=== PATIENT | male | born 1940 | race Caucasian/White ===

== ENCOUNTER 2016-06-24 08:58 | Emergency (ER) | payer MEDICARE, BC ==
[2016-06-24] MEDS ORDERED: Sodium Chloride 0.9% 1,000 ML IV SCH ×2 (09:30→11:00)
--- NOTE | 2016-06-24 09:58 | EDM.PDOC ---
ED HPI GENERAL MEDICAL PROBLEM - General Chief Complaint: General Stated Complaint: MEDICAL VIA [facility] Time Seen by Provider: 06/24/16 09:10 Source of Information: Reports: Patient, Family History Limitations: Reports: No limitations - History of Present Illness INITIAL COMMENTS - FREE TEXT/NARRATIVE: pt has been having radiation and chemo . He has had the radiation twice daily. Yesterday he had diarrhea and felt dehydrated. He was sitting on the edge of the bed this am and nearly passed out. He was vry lite headed and looked quite pale. Onset: sudden Duration: Hour(s): Location: Reports: other (pt was very lite headed. ) Associated Symptoms: Reports: diaphoresis, syncope, other (pt had markd diarrhea yesterday, ) Neck Pain Score (Numeric/FACES): 5 - Related Data Allergies Allergy/AdvReac Type Severity Reaction Status Date / Time No Known Allergies Allergy Verified 06/24/16 09:11 Home Meds: Home Meds Albuterol Sulfate [Proair Hfa] 2 puff INH Q4H PRN 11/27/14 [History] Albuterol/Ipratropium [DuoNeb 3.0-0.5 MG/3 ML] 1 inh INH QID PRN 11/27/14 [ History] Ascorbic Acid [Vitamin C] 500 mg PO DAILY 11/27/14 [History] Budesonide [Pulmicort] 1 unit NEB BID PRN 11/27/14 [History] Furosemide [Lasix] 40 mg PO .QAM 11/27/14 [History] Hydrochlorothiazide 25 mg PO DAILY 11/27/14 [History] Insulin Aspart [NovoLOG] 100 - 150 unit SQ ASDIRECTED 11/27/14 [History] Insulin Glargine,Hum.Rec.Anlog [Lantus Solostar] 40 units SUBCUT .2TIMES A DAY PRN 11/27/14 [History] Lisinopril [Prinivil] 10 mg PO DAILY 11/27/14 [History] Metoprolol Tartrate [Lopressor] 25 mg PO BID 11/27/14 [History] [place]-3 Fatty Acids/Fish Oil [Fish Oil 1,000 mg Softgel] 1,000 mg PO BID [History] Vitamin E (Dl,Tocopheryl Acet) [Vitamin E] 400 units PO BID 11/27/14 [History] metFORMIN [Glucophage] 1,000 mg PO .BID WITH MEALS 11/27/14 [History] Aspirin [Halfprin] 325 mg PO DAILY 06/25/15 [History] Nitroglycerin 1 spray BUCCAL ASDIRECTED PRN 06/25/15 [History] atorvaSTATin [Lipitor] 1 tab PO DAILY 06/25/15 [History] Furosemide [Lasix] 20 mg PO DAILY 03/26/16 [History] Past Medical History HEENT History: Reports: Impaired vision Other HEENT History: wears glasses Cardiovascular History: Reports: Aneurysm, Bypass, High cholesterol, [place], SOB on exertion, Stents Respiratory History: Reports: COPD, Pneumonia, recurrent, SOB, Other (see below) Other Respiratory History: Lung CA Feb Gastrointestinal History: Reports: Colon polyp, Hemorrhoids Genitourinary History: Reports: Diabetic nephropathy, Renal calculus Musculoskeletal History: Reports: Arthritis, Neck pain, chronic Neurological History: Reports: Neuropathy, diabetic, Neuropathy, peripheral Endocrine/Metabolic History: Reports: Diabetes, type II, Obesity/BMI 30+, Vitamin D deficiency Oncologic (Cancer) History: Reports: Basal cell carcinoma Dermatologic History: Reports: None - Infectious Disease History Infectious Disease History: Reports: Chicken pox, Measles, Mumps, Shingles - Past Surgical History HEENT Surgical History: Reports: Cataract surgery Cardiovascular Surgical History: Reports: Coronary artery bypass, Coronary artery stent, Vascular surgery Respiratory Surgical History: Reports: None GI Surgical History: Reports: Colonoscopy, Hernia, inguinal Male Surgical History: Reports: Renal Calculus Endocrine Surgical History: Reports: None Neurological Surgical History: Reports: None Musculoskeletal Surgical History: Reports: None Oncologic Surgical History: Reports: None Dermatological Surgical History: Reports: Skin biopsy Social & Family History - Family History Family Medical History: Noncontributory - Tobacco Use Smoking Status *Q: Former Smoker Years of Tobacco use: 40 Used Tobacco, but Quit: Yes Month Tobacco Last Used: 1997 Second Hand Smoke Exposure: No - Caffeine Use Caffeine Use: Reports: Coffee - Alcohol Use Days Per Week of Alcohol Use: 0 - Recreational Drug Use Recreational Drug Use: No ED ROS GENERAL - Review of Systems Review Of Systems: See Below Constitutional: Reports: no symptoms HEENT: Reports: No symptoms Respiratory: Reports: No Symptoms Cardiovascular: Reports: No symptoms Endocrine: Reports: no symptoms GI/Abdominal: Reports: No symptoms : Reports: no symptoms Musculoskeletal: Reports: no symptoms Skin: Reports: no symptoms Neurological: Reports: Dizziness, Syncope Psychiatric: Reports: No symptoms ED EXAM, GENERAL - Physical Exam Exam: See Below Free Text/Narrative:: Pt is a pale appearing pt who is alert and able to give a good history. Exam Limited By: No limitations General Appearance: alert, mild distress Ears: normal TMs Nose: normal inspection Throat/Mouth: Normal inspection Head: atraumatic Neck: normal inspection Respiratory/Chest: no respiratory distress Cardiovascular: regular rate, rhythm GI/Abdominal: soft, non tender (Male) Exam: Deferred Rectal (Males) Exam: Deferred Back Exam: normal inspection Extremities: normal inspection Neurological: alert, oriented, normal cognition Psychiatric: normal affect Course - Vital Signs Last Recorded V/S: Last Vital Signs Temp 35.6 C 06/24/16 11:32 Pulse 63 06/24/16 10:45 Resp 16 06/24/16 10:45 BP 111/58 L 06/24/16 10:45 Pulse Ox 97 06/24/16 10:45 Orthostatic Blood Pressure [ 92/57 Standing] Orthostatic Blood Pressure [ 130/57 Sitting] Orthostatic Blood Pressure [ 111/64 Supine] - Orders/Labs/Meds Orders: Active Orders 24 hr Category Date Time Status Cardiac Monitoring [RC] .As Directed Care 06/24/16 09:19 Active EKG Documentation Completion [RC] ASDIRECTED Care 06/24/16 11:10 Active Orthostatic Vital Signs [RC] ASDIRECTED Care 06/24/16 11:57 Active Sodium Chloride 0.9% [Normal Saline] 1,000 ml Med 06/24/16 09:30 Active IV ASDIRECTED Sodium Chloride 0.9% [Normal Saline] 1,000 ml Med 06/24/16 11:00 Active IV ASDIRECTED EKG 12 Lead [EK] Routine Ther 06/24/16 11:10 Ordered Medication Orders Sodium Chloride (Normal Saline) 1,000 mls @ 999 mls/hr IV ASDIRECTED RACHAEL Last Admin: 06/24/16 09:44 Dose: 999 mls/hr Sodium Chloride (Normal Saline) 1,000 mls @ 500 mls/hr IV ASDIRECTED RACHAEL Last Admin: 06/24/16 11:13 Dose: 500 mls/hr Labs: Laboratory Tests 06/24/16 06/24/1617 Range/Units 09:38 09:38 11:09 WBC 7.9 (4.5-11.0) K/uL RBC 4.09 L (4.30-5.90) M/uL Hgb 12.0 D (12.0-15.0) g/dL Hct 37.8 L (40.0-54.0) % MCV 92 (80-98) fL MCH 29 (27-31) pg MCHC 32 (32-36) % Plt Count 218 (150-400) K/uL Neut % (Auto) 94 H (36-66) % Lymph % (Auto) 5 L (24-44) % [place] % (Auto) 0 L (2-6) % Eos % (Auto) 1 L (2-4) % Baso % (Auto) 0 (0-1) % Sodium 142 (140-148) mmol/L Potassium 4.5 (3.6-5.2) mmol/L Chloride 103 (100-108) mmol/L Carbon Dioxide 31 (21-32) mmol/L Anion Gap 7.6 (5.0-14.0) mmol/L BUN 71 H (7-18) mg/dL Creatinine 1.5 H (0.8-1.3) mg/dL Est Cr Clr Drug Dosing 43.86 mL/min Estimated GFR (MDRD) 46 L (>60) Glucose 123 H (74-106) mg/dL Calcium 8.8 (8.5-10.1) mg/dL Total Bilirubin 1.0 (0.2-1.0) mg/dL AST 12 L (15-37) U/L ALT 27 (12-78) U/L Alkaline Phosphatase 55 (46-116) U/L Total Protein 6.0 L (6.4-8.2) g/dL Albumin 2.7 L (3.4-5.0) g/dL Globulin 3.3 (2.3-3.5) g/dL Albumin/Globulin Ratio 0.8 L (1.2-2.2) Urine Color Yellow Urine Appearance Clear Urine pH 5.0 (4.5-8.0) Ur Specific [place] 1.020 (1.008-1.030) Urine Protein Negative (NEGATIVE) mg/dL Urine Glucose (UA) Normal (NEGATIVE) mg/dL Urine Ketones Negative (NEGATIVE) mg/dL Urine Occult Blood Negative (NEGATIVE) Urine Nitrite Negative (NEGAITVE) Urine Bilirubin Negative (NEGATIVE) Urine Urobilinogen Normal (NORMAL) mg/dL Ur Leukocyte Esterase Negative (NEGATIVE) Urine RBC Not seen (0-5) Urine WBC 0-5 (0-5) Ur Epithelial Cells Not seen Amorphous Sediment Not seen Urine Bacteria Not seen Urine Mucus Not seen Urine Other Meds: Medications Generic Name Dose Route Start Last Admin Trade Name Stephanie PRN Reason Stop Dose Admin Sodium Chloride 1,000 mls @ 999 mls/hr 06/24/16 09:30 06/24/16 09:44 Normal Saline IV 999 mls/hr ASDIRECTED RACHAEL Administration Sodium Chloride 1,000 mls @ 500 mls/hr 06/24/16 11:00 06/24/16 11:13 Normal Saline IV 500 mls/hr ASDIRECTED RACHAEL Administration - Re-Assessments/Exams Free Text/Narrative Re-Assessment/Exam: 06/24/16 11:58 pt arrived after having a near syncopal episode at home. He had severe diarrhea yesterday. He did have a bp as low as sytolic 70. 06/24/16 12:00 06/24/16 12:00 pt had electrolytes that showed dehydration. 06/24/16 13:22 Pt received 2 liters of fluid and does feel much better. His orthostatic how when he stands up his bp does drop some. Departure - Departure Time of Disposition: 13:25 Disposition: Home, Self-Care 01 Condition: fair Clinical Impression: Dehydration, Cancer of lung Forms: ED Department Discharge Care Plan Goals: decrease lasix for the next 5 days to 40mg daily, skep the 20mg. Encourage fluids. Resume radiation tomorrow. - My Orders Last 24 Hours: My Active Orders 06/24/16 09:19 Cardiac Monitoring [RC] .As Directed 06/24/16 09:30 Sodium Chloride 0.9% [Normal Saline] 1,000 ml IV ASDIRECTED 06/24/16 11:00 Sodium Chloride 0.9% [Normal Saline] 1,000 ml IV ASDIRECTED 06/24/16 11:10 EKG Documentation Completion [RC] ASDIRECTED EKG 12 Lead [EK] Routine 06/24/16 11:57 Orthostatic Vital Signs [RC] ASDIRECTED - Assessment/Plan Last 24 Hours: My Active Orders 06/24/16 09:19 Cardiac Monitoring [RC] .As Directed 06/24/16 09:30 Sodium Chloride 0.9% [Normal Saline] 1,000 ml IV ASDIRECTED 06/24/16 11:00 Sodium Chloride 0.9% [Normal Saline] 1,000 ml IV ASDIRECTED 06/24/16 11:10 EKG Documentation Completion [RC] ASDIRECTED EKG 12 Lead [EK] Routine 06/24/16 11:57 Orthostatic Vital Signs [RC] ASDIRECTED
[2016-06-24 11:23] VITALS: BP 111/58
== END 2016-06-24 13:48 | disposition home or self-care (01) ==
LOC: JP.ED 08:58
DX: E86.0 Dehydration (principal); C34.90 Malignant neoplasm of unspecified part of unspecified bronchus or lung; I25.2 Old myocardial infarction; E78.00 Pure hypercholesterolemia, unspecified; J44.9 Chronic obstructive pulmonary disease, unspecified; E11.21 Type 2 diabetes mellitus with diabetic nephropathy; Z79.4 Long term (current) use of insulin; Z79.82 Long term (current) use of aspirin; Z79.899 Other long term (current) drug therapy; E66.9 Obesity, unspecified; Z68.37 Body mass index [BMI] 37.0-37.9, adult; Z95.1 Presence of aortocoronary bypass graft; Z95.5 Presence of coronary angioplasty implant and graft; Z98.49 Cataract extraction status, unspecified eye; Z98.890 Other specified postprocedural states; Z87.891 Personal history of nicotine dependence
CPT/HCPCS: 36415; 80053; 81001; 85025; 93005; 96360; 99284; J7040; 93010

== ENCOUNTER 2016-12-15 18:17 | Emergency (ER) | payer MEDICARE, BC ==
[2016-12-15 22:22] VITALS: BP 115/68
--- NOTE | 2016-12-15 22:59 | EDM.PDOC ---
ED HPI GENERAL MEDICAL PROBLEM - General Chief Complaint: Diabetic Complaint Stated Complaint: DIZZY Time Seen by Provider: 12/15/16 18:56 Source of Information: Reports: Patient, Family History Limitations: Reports: Other (This patient keeps falling asleep during the exam. All history is given by his ) - History of Present Illness INITIAL COMMENTS - FREE TEXT/NARRATIVE: This patient was brought in because his blood sugar had dropped to 32. He was given something to eat and the sugar came up. This patient has an insulin pump This patient has a history of lung cancer. His last chemotherapy was back in August of this year. His said he said has been sleeping a lot for the past month. He'll wake up in the morning eat breakfast and immediately go back to bed where he'll sleep a couple of hours he seems to sleep about 2 hours then he' ll be awake for a few minutes and then back to bed. The insulins pump had been disconnected for a while. His blood sugar was about 140 when he reconnected the PUMP. Normally he would suspend the PTU MP but he did not suspend it today. Shortly afterwards the sugar dropped to 32. His thinks that he is so sleepy lately that that might have caused him to fail to use the pump correctly. - Related Data Allergies Allergy/AdvReac Type Severity Reaction Status Date / Time No Known Allergies Allergy Verified 12/15/16 18:41 Home Meds: Home Meds Albuterol Sulfate [Proair Hfa] 2 puff INH Q4H PRN 11/27/14 [History] Albuterol/Ipratropium [DuoNeb 3.0-0.5 MG/3 ML] 1 inh INH QID PRN 11/27/14 [ History] Budesonide [Pulmicort] 1 unit NEB BID PRN 11/27/14 [History] Insulin Aspart [NovoLOG] 100 - 150 unit SQ ASDIRECTED 11/27/14 [History] Insulin Glargine,Hum.Rec.Anlog [Lantus Solostar] 40 units SUBCUT .2TIMES A DAY PRN 11/27/14 [History] Metoprolol Tartrate [Lopressor] 12.5 mg PO BID 11/27/14 [History] Aspirin [Halfprin] 325 mg PO DAILY 06/25/15 [History] Nitroglycerin 1 spray BUCCAL ASDIRECTED PRN 06/25/15 [History] atorvaSTATin [Lipitor] 80 mg PO DAILY 06/25/15 [History] Magnesium Oxide [Magnesium] 500 mg PO BID 12/15/16 [History] Megestrol [Megace] 20 ml PO DAILY 12/15/16 [History] Torsemide [Demadex] 10 mg PO DAILY 12/15/16 [History] Past Medical History HEENT History: Reports: Impaired Vision Other HEENT History: wears glasses Cardiovascular History: Reports: Aneurysm, Bypass, High Cholesterol, [place], SOB on Exertion, Stents Respiratory History: Reports: COPD, Pneumonia, Recurrent, SOB, Other (See Below) Other Respiratory History: Lung CA Feb Gastrointestinal History: Reports: Colon Polyp, Hemorrhoids Genitourinary History: Reports: Diabetic Nephropathy, Renal Calculus Musculoskeletal History: Reports: Arthritis, Neck Pain, Chronic Neurological History: Reports: Neuropathy, Diabetic, Neuropathy, Peripheral Endocrine/Metabolic History: Reports: Diabetes, Type II, Obesity/BMI 30+, Vitamin D Deficiency Oncologic (Cancer) History: Reports: Basal Cell Carcinoma Dermatologic History: Reports: None - Infectious Disease History Infectious Disease History: Reports: Chicken Pox, Measles, Mumps, Shingles - Past Surgical History HEENT Surgical History: Reports: Cataract Surgery Cardiovascular Surgical History: Reports: Coronary Artery Bypass, Coronary Artery Stent, Vascular Surgery GI Surgical History: Reports: Colonoscopy, Hernia, Inguinal Dermatological Surgical History: Reports: Skin Biopsy Social & Family History - Family History Family Medical History: Noncontributory - Tobacco Use Smoking Status *Q: Former Smoker Years of Tobacco use: 40 Used Tobacco, but Quit: Yes Month Tobacco Last Used: 1997 Second Hand Smoke Exposure: No - Caffeine Use Caffeine Use: Reports: Coffee - Alcohol Use Days Per Week of Alcohol Use: 0 - Recreational Drug Use Recreational Drug Use: No ED ROS GENERAL - Review of Systems Review Of Systems: See Below Constitutional: Reports: Other (See history of present illness) HEENT: Reports: No Symptoms Respiratory: Reports: No Symptoms Cardiovascular: Reports: No Symptoms Endocrine: Reports: No Symptoms GI/Abdominal: Reports: No Symptoms : Reports: No Symptoms ED EXAM GENERAL NO PERIP PULSE - Physical Exam Exam: See Below Exam Limited By: Other (The patient falls asleep multiple times during the exam) General Appearance: WD/WN, No Apparent Distress Eye Exam: Bilateral Eye: EOMI, PERRL Ears: Normal External Exam, Normal TMs Nose: Normal Inspection Throat/Mouth: Normal Oropharynx Head: Atraumatic Neck: Normal Inspection Respiratory/Chest: Lungs Clear, Other (There is a port in the right infra clavicular area) Cardiovascular: Regular Rate, Rhythm GI/Abdominal: Soft, Non-Tender Back Exam: Normal Inspection Extremities: Normal Inspection Neurological: Oriented, CN II-XII Intact, No Motor/Sensory Deficits, Other (He awakens to voice but after a few moments will close his eyes and go back to sleep.) Psychiatric: Normal Affect Skin Exam: Warm, Dry Course - Vital Signs Last Recorded V/S: Last Vital Signs Temp 35.8 C 12/15/16 18:52 Pulse 76 12/15/16 22:21 Resp 16 12/15/16 22:21 BP 115/68 12/15/16 22:21 Pulse Ox 97 12/15/16 22:21 - Orders/Labs/Meds Orders: Active Orders 24 hr Category Date Time Status Chest 1V Frontal [CR] Urgent Exams 12/15/16 19:11 Taken Head wo Cont [CT] Stat Exams 12/15/16 19:12 Taken Labs: Laboratory Tests 12/15/16 12/15/16 12/15/16 Range/Units 19:22 19:22 19:22 WBC 6.1 (4.5-11.0) K/uL RBC 3.99 L (4.30-5.90) M/uL Hgb 11.2 L (12.0-15.0) g/dL Hct 35.2 L (40.0-54.0) % MCV 88 (80-98) fL MCH 28 (27-31) pg MCHC 32 (32-36) % Plt Count 278 (150-400) K/uL Neut % (Auto) 74 H (36-66) % Lymph % (Auto) 8 L (24-44) % [place] % (Auto) 15 H (2-6) % Eos % (Auto) 2 (2-4) % Baso % (Auto) 1 (0-1) % Sodium 139 L (140-148) mmol/L Potassium 3.6 (3.6-5.2) mmol/L Chloride 103 (100-108) mmol/L Carbon Dioxide 29 (21-32) mmol/L Anion Gap 10.6 (5.0-14.0) mmol/L BUN 19 H D (7-18) mg/dL Creatinine 1.0 (0.8-1.3) mg/dL Est Cr Clr Drug Dosing 66.92 mL/min Estimated GFR (MDRD) > 60 (>60) Glucose 63 L (74-106) mg/dL Lactic Acid 1.7 (0.4-2.0) mmol/L Calcium 8.4 L (8.5-10.1) mg/dL Total Bilirubin 0.5 (0.2-1.0) mg/dL AST 22 D (15-37) U/L ALT 21 (12-78) U/L Alkaline Phosphatase 158 H D (46-116) U/L Total Protein 6.4 (6.4-8.2) g/dL Albumin 2.4 L (3.4-5.0) g/dL Globulin 4.0 H (2.3-3.5) g/dL Albumin/Globulin Ratio 0.6 L (1.2-2.2) Urine Color Urine Appearance Urine pH (4.5-8.0) Ur Specific [place] (1.008-1.030) Urine Protein (NEGATIVE) mg/dL Urine Glucose (UA) (NEGATIVE) mg/dL Urine Ketones (NEGATIVE) mg/dL Urine Occult Blood (NEGATIVE) Urine Nitrite (NEGAITVE) Urine Bilirubin (NEGATIVE) Urine Urobilinogen (NORMAL) mg/dL Ur Leukocyte Esterase (NEGATIVE) Urine RBC (0-5) Urine WBC (0-5) Ur Epithelial Cells Amorphous Sediment Urine Bacteria Urine Mucus 12/15/16 Range/Units 20:08 WBC (4.5-11.0) K/uL RBC (4.30-5.90) M/uL Hgb (12.0-15.0) g/dL Hct (40.0-54.0) % MCV (80-98) fL MCH (27-31) pg MCHC (32-36) % Plt Count (150-400) K/uL Neut % (Auto) (36-66) % Lymph % (Auto) (24-44) % [place] % (Auto) (2-6) % Eos % (Auto) (2-4) % Baso % (Auto) (0-1) % Sodium (140-148) mmol/L Potassium (3.6-5.2) mmol/L Chloride (100-108) mmol/L Carbon Dioxide (21-32) mmol/L Anion Gap (5.0-14.0) mmol/L BUN (7-18) mg/dL Creatinine (0.8-1.3) mg/dL Est Cr Clr Drug Dosing mL/min Estimated GFR (MDRD) (>60) Glucose (74-106) mg/dL Lactic Acid (0.4-2.0) mmol/L Calcium (8.5-10.1) mg/dL Total Bilirubin (0.2-1.0) mg/dL AST (15-37) U/L ALT (12-78) U/L Alkaline Phosphatase (46-116) U/L Total Protein (6.4-8.2) g/dL Albumin (3.4-5.0) g/dL Globulin (2.3-3.5) g/dL Albumin/Globulin Ratio (1.2-2.2) Urine Color Yellow Urine Appearance Clear Urine pH 7.0 (4.5-8.0) Ur Specific [place] 1.010 (1.008-1.030) Urine Protein Negative (NEGATIVE) mg/dL Urine Glucose (UA) Normal (NEGATIVE) mg/dL Urine Ketones Negative (NEGATIVE) mg/dL Urine Occult Blood Negative (NEGATIVE) Urine Nitrite Negative (NEGAITVE) Urine Bilirubin Negative (NEGATIVE) Urine Urobilinogen Normal (NORMAL) mg/dL Ur Leukocyte Esterase Negative (NEGATIVE) Urine RBC Not seen (0-5) Urine WBC Not seen (0-5) Ur Epithelial Cells Rare Amorphous Sediment Not seen Urine Bacteria Rare Urine Mucus Not seen - Re-Assessments/Exams Free Text/Narrative Re-Assessment/Exam: 12/16/16 06:49 Labs were done on this patient. Initially a fingerstick blood sugar was approximately 108. A venipuncture was done which came back about 63 and at that point another fingerstick was done anything dropped into the 40s. The patient was fed a snack and a sandwich. Prior to discharge the blood sugar had risen to 260+ Labs were reviewed and no gross abnormalities were seen. A head CT was done and there were no acute intracranial abnormalities. Patient was reexamined prior to going home and this time he was very alert much more so than any time since arrival. Departure - Departure Time of Disposition: 22:57 Disposition: Home, Self-Care 01 Condition: Fair Clinical Impression: Hypoglycemia - Discharge Information Instructions: Hypoglycemia, [id number] Referrals: PCP,None [Primary Care Provider] - Forms: ED Department Discharge Additional Instructions: It appears that the low blood sugar was caused by restarting the instrument pump in the face of poor caloric intake. No gross lab abnormalities were found other than the low blood sugar. His CT scan was unremarkable. The chest x-ray showed no significant changes from one done last year. In the future he should just try to maintain a consistent caloric intake. If he is not taking in the calories then the instrument pop needs to be turned down or put on standby. Return to the ER at any time if needed - My Orders Last 24 Hours: My Active Orders 12/15/16 19:11 Chest 1V Frontal [CR] Urgent 12/15/16 19:12 Head wo Cont [CT] Stat - Assessment/Plan Last 24 Hours: My Active Orders 12/15/16 19:11 Chest 1V Frontal [CR] Urgent 12/15/16 19:12 Head wo Cont [CT] Stat
--- NOTE | 2016-12-16 08:50 | CR ---
Heart size within normal limits. Sternotomy. Prior thoracotomy the left. The left midlung zone nodule is decreased in size compared to prior chest x-ray 04/13/2016. Thoracotomy left midlung zone. No focal consolidation. Streaky density within the right lung base may reflect atelectasis. Developing infilt rate difficult to exclude.
== END 2016-12-15 23:30 | disposition home or self-care (01) ==
LOC: JP.ED 18:17
DX: E11.649 Type 2 diabetes mellitus with hypoglycemia without coma (principal); H54.7 Unspecified visual loss; E78.00 Pure hypercholesterolemia, unspecified; I25.2 Old myocardial infarction; J44.9 Chronic obstructive pulmonary disease, unspecified; Z87.01 Personal history of pneumonia (recurrent); E11.40 Type 2 diabetes mellitus with diabetic neuropathy, unspecified; E66.9 Obesity, unspecified; M19.90 Unspecified osteoarthritis, unspecified site; Z95.1 Presence of aortocoronary bypass graft; Z87.891 Personal history of nicotine dependence; Z79.4 Long term (current) use of insulin; Z79.899 Other long term (current) drug therapy; Z79.82 Long term (current) use of aspirin
CPT/HCPCS: 36415; 70450; 71010; 71010-26; 80053; 81001; 82962; 83605; 85025; 99284; 99285-25

== ENCOUNTER 2017-01-11 21:05 | Emergency (ER) | payer MEDICARE, BC ==
[2017-01-11 21:27] VITALS: BP 113/58
--- NOTE | 2017-01-11 22:35 | EDM.PDOC ---
ED HPI GENERAL MEDICAL PROBLEM - General Chief Complaint: Gastrointestinal Problem Stated Complaint: BOWEL ISSUES Time Seen by Provider: 01/11/17 22:34 Source of Information: Reports: Patient, Family History Limitations: Reports: No Limitations - History of Present Illness INITIAL COMMENTS - FREE TEXT/NARRATIVE: pt arrived with having incontinent oose stools and feeling like he has some hard stool up in the rectum/ Onset: Gradual Duration: Day(s): Location: Reports: Abdomen Associated Symptoms: Reports: Loss of Appetite - Related Data Allergies Allergy/AdvReac Type Severity Reaction Status Date / Time No Known Allergies Allergy Verified 12/15/16 18:41 Home Meds: Home Meds Albuterol Sulfate [Proair Hfa] 2 puff INH Q4H PRN 11/27/14 [History] Albuterol/Ipratropium [DuoNeb 3.0-0.5 MG/3 ML] 1 inh INH QID PRN 11/27/14 [ History] Budesonide [Pulmicort] 1 unit NEB BID PRN 11/27/14 [History] Insulin Aspart [NovoLOG] 65 - 100 unit SQ ASDIRECTED 11/27/14 [History] Insulin Glargine,Hum.Rec.Anlog [Lantus Solostar] 40 units SUBCUT .2TIMES A DAY PRN 11/27/14 [History] Metoprolol Tartrate [Lopressor] 12.5 mg PO BID 11/27/14 [History] Aspirin [Halfprin] 325 mg PO DAILY 06/25/15 [History] Nitroglycerin 1 spray BUCCAL ASDIRECTED PRN 06/25/15 [History] atorvaSTATin [Lipitor] 80 mg PO DAILY 06/25/15 [History] Magnesium Oxide [Magnesium] 500 mg PO BID 12/15/16 [History] Megestrol [Megace] 20 ml PO DAILY 12/15/16 [History] Torsemide [Demadex] 10 mg PO DAILY 12/15/16 [History] predniSONE [Prednisone] 40 mg PO DAILY 01/11/17 [History] Past Medical History HEENT History: Reports: Impaired Vision Other HEENT History: wears glasses Cardiovascular History: Reports: Aneurysm, Bypass, CAD, High Cholesterol, [place], SOB on Exertion, Stents Respiratory History: Reports: COPD, Pneumonia, Recurrent, SOB, Other (See Below) Other Respiratory History: Lung CA Feb Gastrointestinal History: Reports: Colon Polyp, Hemorrhoids Genitourinary History: Reports: Diabetic Nephropathy, Renal Calculus Musculoskeletal History: Reports: Arthritis, Neck Pain, Chronic Neurological History: Reports: Neuropathy, Diabetic, Neuropathy, Peripheral Endocrine/Metabolic History: Reports: Diabetes, Type II, Obesity/BMI 30+, Vitamin D Deficiency Hematologic History: Reports: Blood Transfusion(s) Immunologic History: Reports: Immunosuppression Oncologic (Cancer) History: Reports: Basal Cell Carcinoma Dermatologic History: Reports: None - Infectious Disease History Infectious Disease History: Reports: Chicken Pox, Measles, Mumps, Shingles - Past Surgical History HEENT Surgical History: Reports: Cataract Surgery Cardiovascular Surgical History: Reports: Coronary Artery Bypass, Coronary Artery Stent, Vascular Surgery Respiratory Surgical History: Reports: Lung Biopsies GI Surgical History: Reports: Colonoscopy, Hernia, Inguinal Neurological Surgical History: Reports: None Dermatological Surgical History: Reports: Skin Biopsy Social & Family History - Family History Family Medical History: Noncontributory - Tobacco Use Smoking Status *Q: Former Smoker Years of Tobacco use: 40 Used Tobacco, but Quit: Yes Month Tobacco Last Used: 1997 Second Hand Smoke Exposure: No - Caffeine Use Caffeine Use: Reports: Coffee - Alcohol Use Days Per Week of Alcohol Use: 0 - Recreational Drug Use Recreational Drug Use: No ED ROS GENERAL - Review of Systems Review Of Systems: Unable To Obtain Constitutional: Reports: Decreased Appetite HEENT: Reports: No Symptoms Respiratory: Reports: No Symptoms Cardiovascular: Reports: No Symptoms Endocrine: Reports: No Symptoms GI/Abdominal: Reports: Constipation, Other ( Hr now is having alot of loose stool. ) Musculoskeletal: Reports: Other ( pain in her lower back. ) Skin: Reports: No Symptoms Neurological: Reports: No Symptoms ED EXAM, GI/ABD - Physical Exam Exam: See Below Text/Narrative:: pt arrived having loose stools. He has not had any formed stools for the past few days. he is no longer on chemo. Exam Limited By: No Limitations General Appearance: Alert, Anxious, Mild Distress, Other (pt feels tender in the lower abdoman. ) Eyes: Bilateral: Normal Appearance, EOMI Ears: Normal TMs Nose: Normal Inspection Throat/Mouth: Normal Inspection Head: Atraumatic Neck: Normal Inspection Respiratory/Chest: No Respiratory Distress Cardiovascular: Regular Rate, Rhythm GI/Abdominal Exam: Soft, Non-Tender (Male) Exam: Deferred Rectal (Males) Exam: Other ( rectal exam reveal a large amount of smelly loose stool. There is some firmer stool above this area. ) Extremities: Normal Inspection, Pedal Edema, Other ( swelling has increased in the last few days. ) Neurological: Alert, Oriented, Normal Cognition, Other Psychiatric: Normal Affect Course - Vital Signs Last Recorded V/S: Last Vital Signs Temp 36.9 C 01/11/17 21:55 Pulse 110 H 01/11/17 21:55 Resp 14 01/11/17 21:55 BP 113/58 L 01/11/17 21:55 Pulse Ox 92 L 01/11/17 21:55 - Orders/Labs/Meds Labs: Laboratory Tests 01/11/17 01/11/17 01/11/17 Range/Units 22:31 22:31 22:56 WBC 9.8 (4.5-11.0) K/uL RBC 4.06 L (4.30-5.90) M/uL Hgb 11.3 L (12.0-15.0) g/dL Hct 36.0 L (40.0-54.0) % MCV 89 (80-98) fL MCH 28 (27-31) pg MCHC 31 L (32-36) % Plt Count 372 (150-400) K/uL Neut % (Auto) 74 H (36-66) % Lymph % (Auto) 7 L (24-44) % [place] % (Auto) 14 H (2-6) % Eos % (Auto) 4 (2-4) % Baso % (Auto) 1 (0-1) % Sodium 139 L (140-148) mmol/L Potassium 4.2 (3.6-5.2) mmol/L Chloride 105 (100-108) mmol/L Carbon Dioxide 27 (21-32) mmol/L Anion Gap 11.2 (5.0-14.0) mmol/L BUN 26 H (7-18) mg/dL Creatinine 1.0 (0.8-1.3) mg/dL Est Cr Clr Drug Dosing 60.59 mL/min Estimated GFR (MDRD) > 60 (>60) Glucose 166 H (74-106) mg/dL Calcium 9.0 (8.5-10.1) mg/dL Total Bilirubin 0.5 (0.2-1.0) mg/dL AST 19 (15-37) U/L ALT 20 (12-78) U/L Alkaline Phosphatase 161 H (46-116) U/L Total Protein 6.9 (6.4-8.2) g/dL Albumin 2.7 L (3.4-5.0) g/dL Globulin 4.2 H (2.3-3.5) g/dL Albumin/Globulin Ratio 0.6 L (1.2-2.2) Urine Color Yellow Urine Appearance Cloudy Urine pH 6.0 (4.5-8.0) Ur Specific [place] 1.015 (1.008-1.030) Urine Protein Negative (NEGATIVE) mg/dL Urine Glucose (UA) 50 H (NEGATIVE) mg/dL Urine Ketones Negative (NEGATIVE) mg/dL Urine Occult Blood Negative (NEGATIVE) Urine Nitrite Negative (NEGAITVE) Urine Bilirubin Negative (NEGATIVE) Urine Urobilinogen Normal (NORMAL) mg/dL Ur Leukocyte Esterase Large (NEGATIVE) Urine RBC 0-5 (0-5) Urine WBC 20-30 H (0-5) Ur Epithelial Cells Few Amorphous Sediment Few Urine Bacteria Few Urine Mucus Few Meds: Medications Discontinued Medications Generic Name Dose Route Start Last Admin Trade Name Freq PRN Reason Stop Dose Admin Bisacodyl 10 mg 01/12/17 00:09 01/12/17 00:13 Dulcolax RECTAL 01/12/17 00:10 10 mg ONETIME ONE Administration Magnesium Citrate 296 ml 01/12/17 00:10 01/12/17 00:13 Citrate Of Magnesia PO 01/12/17 00:11 296 ml ONETIME ONE Administration Magnesium Citrate 296 ml 01/12/17 01:18 01/12/17 01:23 Citrate Of Magnesia PO 01/12/17 01:19 296 ml ONETIME ONE Administration Magnesium Citrate Confirm 01/12/17 01:19 01/12/17 01:23 Citrate Of Magnesia Administered 01/12/17 01:20 Not Given Dose 296 ml .ROUTE .STK-MED ONE - Re-Assessments/Exams Free Text/Narrative Re-Assessment/Exam: 01/11/17 22:43 Pt was given a tap water enemea but he was not able to hold it up in the rectum. He had alot of very smelly liquid stool in the rectum and up further he had some hard stool that could hardly be reached. He had a flat plate of te abdoman which did not show air fluid levels. He has stool but it does look quite high. He was given a bottle of mag citrate and a ducolax supp was pushed hich in the rectum. At this point the pt wanted to go home and let the mag citrate work. 01/12/17 01:20 Departure - Departure Time of Disposition: 01:23 Disposition: Home, Self-Care 01 Condition: Fair Clinical Impression: Constipation, Small cell carcinoma of lung - Discharge Information Instructions: Constipation, Adult Referrals: PCP,None [Primary Care Provider] - Forms: ED Department Discharge Care Plan Goals: rtc if he becomes uncomfortable. If he does pass some of the liquid stool he should bring it back to hosp for testing . If he has not had results by morning from the first bottle of mag citrate he should drink a second.
[2017-01-12] MEDS ORDERED: Bisacodyl 10 MG Supp RECTAL ONE (00:09)
[2017-01-12] MEDS ORDERED: Magnesium Citrate Solution 296 ML Bottle PO ONE ×2 (00:10→01:18)
[2017-01-12] MEDS ORDERED: Magnesium Citrate Solution 296 ML Bottle ONE (01:19)
--- NOTE | 2017-01-12 09:11 | CR ---
Acute abdominal series Comparison: Chest x-ray 15 December 2016. Findings: There has been interval development of a interstitial infiltrate in the central left lung. The finding is most consistent with pneumonia. There is hyperinflation consistent with COPD. There is a right [id number] catheter unchanged. There is right basilar scarring. There is no large or small bowel distention. There are no pathologic air-fluid levels. There is no fr ee air. Impression: 1. Infiltrate left midlung. Correlate for pneumonia. 2. COPD. 3. No acute findings of the abdomen.
== END 2017-01-12 01:34 | disposition home or self-care (01) ==
LOC: JP.ED 21:05
DX: K59.00 Constipation, unspecified (principal); C34.90 Malignant neoplasm of unspecified part of unspecified bronchus or lung; I25.2 Old myocardial infarction; I25.10 Atherosclerotic heart disease of native coronary artery without angina pectoris; J44.9 Chronic obstructive pulmonary disease, unspecified; E11.42 Type 2 diabetes mellitus with diabetic polyneuropathy; E66.9 Obesity, unspecified; Z98.49 Cataract extraction status, unspecified eye; Z95.1 Presence of aortocoronary bypass graft; Z95.5 Presence of coronary angioplasty implant and graft; Z98.890 Other specified postprocedural states; Z87.891 Personal history of nicotine dependence; Z79.4 Long term (current) use of insulin; Z79.82 Long term (current) use of aspirin; Z79.899 Other long term (current) drug therapy; K56.41 Fecal impaction
CPT/HCPCS: 36415; 74022; 80053; 81001; 85025; 87046; 87086; 87493; 87899; 99284; A9270

== ENCOUNTER 2017-09-13 21:06 | Emergency (ER) | payer MEDICARE, BC ==
--- NOTE | 2017-09-13 22:51 | EDM.PDOC ---
ED HPI GENERAL MEDICAL PROBLEM - General Chief Complaint: Respiratory Problem Stated Complaint: SOB Time Seen by Provider: 09/13/17 22:35 Source of Information: Reports: Patient, Family, Old Records History Limitations: Reports: No Limitations - History of Present Illness INITIAL COMMENTS - FREE TEXT/NARRATIVE: 76 yo male from [place] who is being tx's with radiation and chemo in [place] for lung CA presents with increased SOB that began early today. Denies fever or orthopnea. Has a chronic cough that is non-productive. He says SOB began this morning, family says he didn't say anything about it and they couldn't tell that he was SOB. Did not report his sx's to his primary. Is on oxygen at 2 liters/min/NC chronically at home. Hx of recurrent dehydration. Is currently on Lovenox for known PE. Onset: Today, Sudden Onset Date: 09/13/17 Duration: Hour(s):, Constant Location: Reports: Chest (some tightness) Quality: Reports: Other (tight) Severity: Mild Improves with: Reports: None Worsens with: Reports: None Context: Reports: Other (lung CA, hx of radiation and chemo) Associated Symptoms: Reports: Cough (chronic), Shortness of Breath (mild). Denies: Fever/Chills Treatments [employer]: Reports: Other (see below) (none) - Related Data Allergies Allergy/AdvReac Type Severity Reaction Status Date / Time levofloxacin AdvReac Other Verified 09/13/17 21:53 Home Meds: Home Meds Albuterol Sulfate [Proair Hfa] 2 puff INH Q4H PRN 11/27/14 [History] Albuterol/Ipratropium [DuoNeb 3.0-0.5 MG/3 ML] 1 inh INH QID PRN 11/27/14 [ History] Budesonide [Pulmicort] 1 unit NEB BID PRN 11/27/14 [History] Insulin Aspart [NovoLOG] 65 - 100 unit SQ ASDIRECTED 11/27/14 [History] Metoprolol Tartrate [Lopressor] 12.5 mg PO BID 11/27/14 [History] Nitroglycerin 1 spray BUCCAL ASDIRECTED PRN 06/25/15 [History] atorvaSTATin [Lipitor] 40 mg PO BEDTIME 06/25/15 [History] Magnesium Oxide [Magnesium] 500 mg PO BID 12/15/16 [History] Megestrol [Megace] 20 mg PO DAILY 12/15/16 [History] Torsemide [Demadex] 10 mg PO DAILY 12/15/16 [History] Acetaminophen/Diphenhydramine [Tylenol Pm Ex-Strength Caplet] 2 tab PO ASDIRECTED 09/13/17 [History] Azithromycin [Zithromax] 1 tab PO DAILY 09/13/17 [History] Clopidogrel Bisulfate [Clopidogrel] 1 tab PO BEDTIME 09/13/17 [History] Enoxaparin Sodium 150 mg IM DAILY 09/13/17 [History] Finasteride 1 tab PO DAILY 09/13/17 [History] Fluticasone Propionate [Flonase] 1 spray ESTRELLA BID 09/13/17 [History] Polyethylene Glycol 3350 [MiraLAX] 17 gm PO DAILY PRN 09/13/17 [History] Tamsulosin HCl 1 tab PO BEDTIME 09/13/17 [History] Umeclidinium Brm/Vilanterol Tr [Anoro Ellipta 62.5-25 MCG] 1 puff INH DAILY 02/20 [History] prednisoLONE Acetate [Pred Forte 1% Ophth Susp] 1 drop EYELF QID 09/13/17 [ History] traMADol HCl [Tramadol HCl] 1 tab PO QID PRN 09/13/17 [History] Past Medical History HEENT History: Reports: Impaired Vision Other HEENT History: wears glasses Cardiovascular History: Reports: Aneurysm, Bypass, CAD, High Cholesterol, [place], SOB on Exertion, Stents Respiratory History: Reports: COPD, Pneumonia, Recurrent, SOB, Other (See Below) Other Respiratory History: Lung CA Feb Gastrointestinal History: Reports: Colon Polyp, Hemorrhoids Genitourinary History: Reports: Diabetic Nephropathy, Renal Calculus Musculoskeletal History: Reports: Arthritis, Neck Pain, Chronic Neurological History: Reports: Neuropathy, Diabetic, Neuropathy, Peripheral Endocrine/Metabolic History: Reports: Diabetes, Type II, Obesity/BMI 30+, Vitamin D Deficiency Hematologic History: Reports: Blood Transfusion(s) Immunologic History: Reports: Immunosuppression Oncologic (Cancer) History: Reports: Basal Cell Carcinoma, Lung, Other (See Below) Other Oncologic History: small cell lung cancer Dermatologic History: Reports: None - Infectious Disease History Infectious Disease History: Reports: Chicken Pox, Measles, Mumps, Shingles - Past Surgical History HEENT Surgical History: Reports: Cataract Surgery Cardiovascular Surgical History: Reports: Coronary Artery Bypass, Coronary Artery Stent, Vascular Surgery Respiratory Surgical History: Reports: Lung Biopsies GI Surgical History: Reports: Colonoscopy, Hernia, Inguinal Dermatological Surgical History: Reports: Skin Biopsy Social & Family History - Family History Family Medical History: Noncontributory - Tobacco Use Smoking Status *Q: Former Smoker Used Tobacco, but Quit: Yes Month/Year Tobacco Last Used: 0 - Caffeine Use Caffeine Use: Reports: Coffee - Recreational Drug Use Recreational Drug Use: No ED ROS GENERAL - Review of Systems Review Of Systems: See Below Constitutional: Reports: No Symptoms HEENT: Reports: No Symptoms Respiratory: Reports: Shortness of Breath, Cough (chronic). Denies: Wheezing, Pleuritic Chest Pain, Sputum, Hemoptysis Cardiovascular: Reports: No Symptoms Endocrine: Reports: No Symptoms GI/Abdominal: Reports: No Symptoms : Reports: No Symptoms Musculoskeletal: Reports: No Symptoms Skin: Reports: No Symptoms Neurological: Reports: No Symptoms Psychiatric: Reports: No Symptoms ED EXAM, GENERAL - Physical Exam Exam: See Below Exam Limited By: No Limitations General Appearance: Alert, WD/WN, No Apparent Distress Eye Exam: Bilateral Eye: Normal Inspection Ears: Normal External Exam, Normal Canal, Hearing Grossly Normal Ear Exam: Bilateral Ear: Auricle Normal, Canal Normal Nose: Normal Inspection, Normal Mucosa, No Blood Throat/Mouth: Normal Inspection, Normal Lips, Normal Oropharynx, Normal Voice, No Airway Compromise Head: Atraumatic, Normocephalic Neck: Normal Inspection, Supple Respiratory/Chest: No Respiratory Distress, Lungs Clear, Normal Breath Sounds, No Accessory Muscle Use, Other (wet sounding cough) Cardiovascular: Regular Rate, Rhythm GI/Abdominal: Normal Bowel Sounds, Soft, Non-Tender, No Distention Extremities: Normal Inspection, Normal Range of Motion, Non-Tender, No Pedal Edema Neurological: Alert, Oriented, CN II-XII Intact, Normal Cognition, No Motor/ Sensory Deficits Psychiatric: Normal Affect, Normal Mood Skin Exam: Warm, Dry, Intact, Normal Color, No Rash Lymphatic: No Adenopathy Course - Vital Signs Last Recorded V/S: Last Vital Signs Temp 35.9 C 09/13/17 21:50 Pulse 71 09/14/17 00:20 Resp 16 09/14/17 00:20 BP 137/56 L 09/14/17 00:20 Pulse Ox 99 09/14/17 00:20 - Orders/Labs/Meds Orders: Active Orders 24 hr Category Date Time Status Ang Chest [CT] Stat Exams 09/13/17 23:58 Stop Req UA W/MICROSCOPIC [URIN] Stat Lab 09/13/17 22:45 Ordered Heparin Sodium [Heparin Lock Flush 100 Units/ML] Med 09/14/17 01:18 Active 500 units FLUSH ASDIRECTED PRN Medication Orders Heparin Sodium (Porcine) (Heparin Lock Flush 100 Units/Ml) 500 units FLUSH ASDIRECTED PRN PRN Reason: Other Labs: Laboratory Tests 09/13/17 09/13/17 09/13/17 Range/Units 23:00 23:00 23:00 WBC 6.3 (4.5-11.0) K/uL RBC 4.13 L (4.30-5.90) M/uL Hgb 12.0 (12.0-15.0) g/dL Hct 37.8 L (40.0-54.0) % MCV 92 (80-98) fL MCH 29 (27-31) pg MCHC 32 (32-36) % Plt Count 272 (150-400) K/uL D-Dimer, Quantitative 1300 H (0.0-400.0) ng/mL Sodium 138 L (140-148) mmol/L Potassium 4.1 (3.6-5.2) mmol/L Chloride 104 (100-108) mmol/L Carbon Dioxide 27 (21-32) mmol/L Anion Gap 11.1 (5.0-14.0) mmol/L BUN 24 H (7-18) mg/dL Creatinine 1.1 (0.8-1.3) mg/dL Est Cr Clr Drug Dosing 58.92 mL/min Estimated GFR (MDRD) > 60 (>60) Glucose 105 (74-106) mg/dL Calcium 8.3 L (8.5-10.1) mg/dL Troponin I < 0.017 (0.000-0.056) ng/mL C-Reactive Protein 3.05 H (0.0-0.3) mg/dL Meds: Medications Generic Name Dose Route Start Last Admin Trade Name Freq PRN Reason Stop Dose Admin Heparin Sodium (Porcine) 500 units 09/14/17 01:18 Heparin Lock Flush 100 Units/Ml FLUSH ASDIRECTED PRN Other Discontinued Medications Generic Name Dose Route Start Last Admin Trade Name Stephanie PRN Reason Stop Dose Admin Lactated Ringer's 1,000 mls @ 1,000 mls/hr 09/13/17 23:48 09/14/17 00:27 Ringers, Lactated IV 09/14/17 00:47 1,000 mls/hr BOLUS ONE Administration Departure - Departure Time of Disposition: 01:25 Disposition: Home, Self-Care 01 Condition: Good Clinical Impression: Mild dehydration - Discharge Information Referrals: PCP,None [Primary Care Provider] - Forms: ED Department Discharge - My Orders Last 24 Hours: My Active Orders 09/13/17 22:45 UA W/MICROSCOPIC [URIN] Stat 09/13/17 23:58 Ang Chest [CT] Stat 09/14/17 01:18 Heparin Sodium [Heparin Lock Flush 100 Units/ML] 500 units FLUSH ASDIRECTED PRN - Assessment/Plan Last 24 Hours: My Active Orders 09/13/17 22:45 UA W/MICROSCOPIC [URIN] Stat 09/13/17 23:58 Ang Chest [CT] Stat 09/14/17 01:18 Heparin Sodium [Heparin Lock Flush 100 Units/ML] 500 units FLUSH ASDIRECTED PRN
[2017-09-13] MEDS ORDERED: Lactated Ringers 1,000 ML IV ONE (23:48)
[2017-09-14 00:29] VITALS: BP 137/56
== END 2017-09-14 02:03 | disposition home or self-care (01) ==
LOC: JP.ED 21:06
DX: E86.0 Dehydration (principal); E78.00 Pure hypercholesterolemia, unspecified; I25.2 Old myocardial infarction; E11.21 Type 2 diabetes mellitus with diabetic nephropathy; E11.42 Type 2 diabetes mellitus with diabetic polyneuropathy; Z88.1 Allergy status to other antibiotic agents; Z79.899 Other long term (current) drug therapy; Z79.4 Long term (current) use of insulin; Z87.891 Personal history of nicotine dependence
CPT/HCPCS: 36415; 80048; 84484; 85027; 85379; 86140; 96360; 99284; J1642; J7120

== ENCOUNTER 2017-09-21 14:47 | Emergency (ER) | payer MEDICARE, BC ==
[2017-09-21] MEDS ORDERED: Sodium Chloride 0.9% 10 ML Syringe FLUSH PRN (15:41)
[2017-09-21] MEDS ORDERED: Sodium Chloride 0.9% 500 ML IV ONE (15:41)
--- NOTE | 2017-09-21 16:13 | EDM.PDOC ---
ED HPI GENERAL MEDICAL PROBLEM - General Chief Complaint: General Stated Complaint: DEHYDRATED Time Seen by Provider: 09/21/17 15:20 Source of Information: Reports: Patient, Family History Limitations: Reports: No Limitations - History of Present Illness INITIAL COMMENTS - FREE TEXT/NARRATIVE: 77-year-old male with a history of metastatic lung cancer, undergoing treatment has no appetite and has difficulty taking fluids. No nausea or vomiting, no diarrhea, but he feels lightheaded and he has symptoms similar to a week ago when he responded to IV fluids. Onset: Gradual Severity: Moderate Associated Symptoms: Reports: Cough, Malaise, Weakness. Denies: Nausea/Vomiting - Related Data Allergies Allergy/AdvReac Type Severity Reaction Status Date / Time levofloxacin AdvReac Other Verified 09/21/17 15:20 Home Meds: Home Meds Albuterol Sulfate [Proair Hfa] 2 puff INH Q4H PRN 11/27/14 [History] Albuterol/Ipratropium [DuoNeb 3.0-0.5 MG/3 ML] 1 inh INH QID PRN 11/27/14 [ History] Budesonide [Pulmicort] 1 unit NEB BID PRN 11/27/14 [History] Insulin Aspart [NovoLOG] 65 - 100 unit SQ ASDIRECTED 11/27/14 [History] Metoprolol Tartrate [Lopressor] 12.5 mg PO BID 11/27/14 [History] Nitroglycerin 1 spray BUCCAL ASDIRECTED PRN 06/25/15 [History] atorvaSTATin [Lipitor] 40 mg PO BEDTIME 06/25/15 [History] Magnesium Oxide [Magnesium] 500 mg PO BID 12/15/16 [History] Megestrol [Megace] 20 mg PO DAILY 12/15/16 [History] Torsemide [Demadex] 10 mg PO DAILY 12/15/16 [History] Acetaminophen/Diphenhydramine [Tylenol Pm Ex-Strength Caplet] 2 tab PO ASDIRECTED 09/13/17 [History] Azithromycin [Zithromax] 1 tab PO DAILY 09/13/17 [History] Clopidogrel Bisulfate [Clopidogrel] 1 tab PO BEDTIME 09/13/17 [History] Enoxaparin Sodium 150 mg IM DAILY 09/13/17 [History] Finasteride 1 tab PO DAILY 09/13/17 [History] Fluticasone Propionate [Flonase] 1 spray ESTRELLA BID 09/13/17 [History] Polyethylene Glycol 3350 [MiraLAX] 17 gm PO DAILY PRN 09/13/17 [History] Tamsulosin HCl 1 tab PO BEDTIME 09/13/17 [History] Umeclidinium Brm/Vilanterol Tr [Anoro Ellipta 62.5-25 MCG] 1 puff INH DAILY 02/20 [History] prednisoLONE Acetate [Pred Forte 1% Ophth Susp] 1 drop EYELF QID 09/13/17 [ History] traMADol HCl [Tramadol HCl] 1 tab PO QID PRN 09/13/17 [History] Past Medical History HEENT History: Reports: Impaired Vision Other HEENT History: wears glasses Cardiovascular History: Reports: Aneurysm, Bypass, CAD, High Cholesterol, [place], SOB on Exertion, Stents Respiratory History: Reports: COPD, Pneumonia, Recurrent, SOB, Other (See Below) Other Respiratory History: Lung CA Feb Gastrointestinal History: Reports: Colon Polyp, Hemorrhoids Genitourinary History: Reports: Diabetic Nephropathy, Renal Calculus Musculoskeletal History: Reports: Arthritis, Neck Pain, Chronic Neurological History: Reports: Neuropathy, Diabetic, Neuropathy, Peripheral Endocrine/Metabolic History: Reports: Diabetes, Type II, Obesity/BMI 30+, Vitamin D Deficiency Hematologic History: Reports: Blood Transfusion(s) Immunologic History: Reports: Immunosuppression Oncologic (Cancer) History: Reports: Basal Cell Carcinoma, Lung, Other (See Below) Other Oncologic History: small cell lung cancer Dermatologic History: Reports: None - Infectious Disease History Infectious Disease History: Reports: Chicken Pox, Measles, Mumps, Shingles - Past Surgical History HEENT Surgical History: Reports: Cataract Surgery Cardiovascular Surgical History: Reports: Coronary Artery Bypass, Coronary Artery Stent, Vascular Surgery Respiratory Surgical History: Reports: Lung Biopsies GI Surgical History: Reports: Colonoscopy, Hernia, Inguinal Dermatological Surgical History: Reports: Skin Biopsy Social & Family History - Family History Family Medical History: Noncontributory - Tobacco Use Smoking Status *Q: Former Smoker Used Tobacco, but Quit: Yes Month/Year Tobacco Last Used: 1997 - Caffeine Use Caffeine Use: Reports: Soda - Recreational Drug Use Recreational Drug Use: No ED ROS GENERAL - Review of Systems Review Of Systems: See Below Constitutional: Reports: Malaise. Denies: Fever, Chills Respiratory: Reports: Shortness of Breath, Cough. Denies: Sputum Cardiovascular: Denies: Chest Pain GI/Abdominal: Reports: Nausea. Denies: Vomiting Skin: Reports: Pallor Neurological: Reports: No Symptoms ED EXAM, GENERAL - Physical Exam Exam: See Below Exam Limited By: No Limitations General Appearance: Alert, No Apparent Distress Eye Exam: Bilateral Eye: Other (Somewhat pale conjunctiva) Respiratory/Chest: No Respiratory Distress, Rales (Numerous rales and rhonchi on the left lung, decreased breath sounds on the right) Cardiovascular: Regular Rate, Rhythm GI/Abdominal: Soft, Non-Tender Extremities: Pedal Edema (1+ symmetric pedal edema is present which is chronic) Neurological: Alert, Oriented Course - Vital Signs Last Recorded V/S: Last Vital Signs Temp 97.3 F 09/21/17 15:19 Pulse 89 09/21/17 16:56 Resp 16 09/21/17 15:19 BP 123/72 09/21/17 16:56 Pulse Ox 100 09/21/17 15:19 - Orders/Labs/Meds Labs: Laboratory Tests 09/21/17 Range/Units 15:41 Sodium 140 (140-148) mmol/L Potassium 4.0 (3.6-5.2) mmol/L Chloride 107 (100-108) mmol/L Carbon Dioxide 26 (21-32) mmol/L Anion Gap 7.5 (5.0-14.0) mmol/L BUN 23 H (7-18) mg/dL Creatinine 1.2 (0.8-1.3) mg/dL Est Cr Clr Drug Dosing 53.19 mL/min Estimated GFR (MDRD) 59 L (>60) Glucose 121 H (74-106) mg/dL Calcium 8.4 L (8.5-10.1) mg/dL Meds: Medications Discontinued Medications Generic Name Dose Route Start Last Admin Trade Name Freq PRN Reason Stop Dose Admin Heparin Sodium (Porcine) 500 units 09/21/17 16:40 09/21/17 17:11 Heparin Lock Flush 100 Units/Ml FLUSH 500 units ASDIRECTED PRN Administration portacath Sodium Chloride 500 mls @ 500 mls/hr 09/21/17 15:41 09/21/17 16:07 Normal Saline IV 09/21/17 16:40 500 mls/hr .BOLUS ONE Administration Sodium Chloride 10 ml 09/21/17 15:41 09/21/17 16:04 Saline Flush FLUSH 10 ml ASDIRECTED PRN Administration Keep Vein Open - Re-Assessments/Exams Free Text/Narrative Re-Assessment/Exam: 09/21/17 16:12 Patient was given 500 mL of IV bolus fluid and a BMP was obtained. Labs were reassuring and the patient felt better after the fluids. He was discharged encouraged to continue oral fluids if possible. Departure - Departure Time of Disposition: 17:35 Disposition: Home, Self-Care 01 Condition: Fair Clinical Impression: Mild dehydration, Small cell carcinoma of lung - Discharge Information Instructions: Dehydration, Adult, [id number] Referrals: José Manuel Grey MD [Primary Care Provider] - Forms: ED Department Discharge Care Plan Goals: Continue your current medications, its important to maintain hydration. Return if worsening or concerns.
[2017-09-21 16:57] VITALS: BP 123/72
== END 2017-09-21 17:35 | disposition home or self-care (01) ==
LOC: JP.ED 14:47
DX: E86.0 Dehydration (principal); C78.00 Secondary malignant neoplasm of unspecified lung; C80.1 Malignant (primary) neoplasm, unspecified; J44.9 Chronic obstructive pulmonary disease, unspecified; I25.2 Old myocardial infarction; E11.40 Type 2 diabetes mellitus with diabetic neuropathy, unspecified; Z79.899 Other long term (current) drug therapy; Z79.4 Long term (current) use of insulin; Z87.891 Personal history of nicotine dependence; E78.00 Pure hypercholesterolemia, unspecified; Z88.1 Allergy status to other antibiotic agents
CPT/HCPCS: 36415; 80048; 96360; 99284; J1642; J7040; J7050

== ENCOUNTER 2017-10-15 12:17 | Emergency (ER) | payer MEDICARE, BC ==
[2017-10-15] MEDS ORDERED: Sodium Chloride 0.9% 1,000 ML IV SCH (13:30)
--- NOTE | 2017-10-15 13:35 | EDM.PDOC ---
ED HPI GENERAL MEDICAL PROBLEM - General Chief Complaint: Cardiovascular Problem Stated Complaint: MEDICAL VIA [facility] Time Seen by Provider: 10/15/17 13:10 Source of Information: Reports: Patient, Family History Limitations: Reports: No Limitations - History of Present Illness INITIAL COMMENTS - FREE TEXT/NARRATIVE: Dwight presents today for complaints of generalized weakness, increased edema to bilateral lower extremities and increased pain to bilateral legs for three days. He also reports he fell 4 days ago striking his left ribs and developing a skin tear to his left forearm. He denies any other injuries or striking his head. - Related Data Allergies Allergy/AdvReac Type Severity Reaction Status Date / Time levofloxacin AdvReac Other Verified 09/21/17 15:20 Home Meds: Home Meds Albuterol Sulfate [Proair Hfa] 2 puff INH Q4H PRN 11/27/14 [History] Albuterol/Ipratropium [DuoNeb 3.0-0.5 MG/3 ML] 1 inh INH QID PRN 11/27/14 [ History] Budesonide [Pulmicort] 1 unit NEB BID PRN 11/27/14 [History] Insulin Aspart [NovoLOG] 65 - 100 unit SQ ASDIRECTED 11/27/14 [History] Metoprolol Tartrate [Lopressor] 12.5 mg PO BID 11/27/14 [History] Nitroglycerin 1 spray BUCCAL ASDIRECTED PRN 06/25/15 [History] atorvaSTATin [Lipitor] 40 mg PO BEDTIME 06/25/15 [History] Magnesium Oxide [Magnesium] 500 mg PO BID 12/15/16 [History] Megestrol [Megace] 20 mg PO DAILY 12/15/16 [History] Torsemide [Demadex] 10 mg PO DAILY 12/15/16 [History] Acetaminophen/Diphenhydramine [Tylenol Pm Ex-Strength Caplet] 2 tab PO ASDIRECTED 09/13/17 [History] Clopidogrel Bisulfate [Clopidogrel] 1 tab PO BEDTIME 09/13/17 [History] Enoxaparin Sodium 150 mg IM DAILY 09/13/17 [History] Finasteride 1 tab PO DAILY 09/13/17 [History] Fluticasone Propionate [Flonase] 1 spray ESTRELLA BID 09/13/17 [History] Tamsulosin HCl 1 tab PO BEDTIME 09/13/17 [History] Umeclidinium Brm/Vilanterol Tr [Anoro Ellipta 62.5-25 MCG] 1 puff INH DAILY 02/20 [History] traMADol HCl [Tramadol HCl] 1 tab PO QID PRN 09/13/17 [History] Acetaminophen with Codeine [Tylenol with Codeine #3 Tablet] 1 tab PO Q4HR PRN [History] Citalopram Hydrobromide [Celexa] 1 tab PO DAILY 10/15/17 [History] predniSONE [Prednisone] 1 tab PO BID 10/15/17 [History] Past Medical History HEENT History: Reports: Impaired Vision Other HEENT History: wears glasses Cardiovascular History: Reports: Aneurysm, Bypass, CAD, High Cholesterol, [place], SOB on Exertion, Stents Respiratory History: Reports: COPD, Pneumonia, Recurrent, SOB, Other (See Below) Other Respiratory History: Lung CA Feb Gastrointestinal History: Reports: Colon Polyp, Hemorrhoids Genitourinary History: Reports: Diabetic Nephropathy, Renal Calculus Musculoskeletal History: Reports: Arthritis, Neck Pain, Chronic Neurological History: Reports: Neuropathy, Diabetic, Neuropathy, Peripheral Endocrine/Metabolic History: Reports: Diabetes, Type II, Obesity/BMI 30+, Vitamin D Deficiency Hematologic History: Reports: Blood Transfusion(s) Immunologic History: Reports: Immunosuppression Oncologic (Cancer) History: Reports: Basal Cell Carcinoma, Lung, Other (See Below) Other Oncologic History: small cell lung cancer Dermatologic History: Reports: None - Infectious Disease History Infectious Disease History: Reports: Chicken Pox, Measles, Mumps, Shingles - Past Surgical History HEENT Surgical History: Reports: Cataract Surgery Cardiovascular Surgical History: Reports: Coronary Artery Bypass, Coronary Artery Stent, Vascular Surgery Respiratory Surgical History: Reports: Lung Biopsies GI Surgical History: Reports: Colonoscopy, Hernia, Inguinal Dermatological Surgical History: Reports: Skin Biopsy Social & Family History - Family History Family Medical History: Noncontributory - Tobacco Use Smoking Status *Q: Former Smoker Used Tobacco, but Quit: Yes Month/Year Tobacco Last Used: 0 - Caffeine Use Caffeine Use: Reports: Soda - Recreational Drug Use Recreational Drug Use: No ED ROS GENERAL - Review of Systems Review Of Systems: See Below Constitutional: Reports: Weakness, Other (Increased edema to bilateral lower extremities, fall 4 days ago striking left ribs and left forearm when he tripped on a rug and fell to the floor. ). Denies: Fever, Chills, Malaise HEENT: Reports: No Symptoms Respiratory: Reports: Shortness of Breath, Other (Pain to left anterior/lateral lower ribs. ). Denies: Wheezing, Cough, Sputum, Hemoptysis Cardiovascular: Reports: Dyspnea on Exertion, Edema, Other (increased bilateral lower leg edema). Denies: Chest Pain, Lightheadedness, Palpitations, PND Endocrine: Reports: No Symptoms GI/Abdominal: Denies: Abdominal Pain, Constipation, Diarrhea, Distension, Nausea , Vomiting : Reports: No Symptoms Musculoskeletal: Reports: Leg Pain, Other (bilateral leg pain) Skin: Reports: Bruising, Other (skin tear to left forearm). Denies: Cyanosis, Jaundice, Mottled, Pallor, Diaphoresis, Pruritis, Rash, Erythema Neurological: Reports: No Symptoms Psychiatric: Reports: No Symptoms Hematologic/Lymphatic: Reports: No Symptoms Immunologic: Reports: No Symptoms ED EXAM, GENERAL - Physical Exam Exam: See Below Free Text/Narrative:: Dwight is an alert, oriented x 3, 77 year old male presenting with complaints of generalized weakness, SOB and recent fall 4 days ago with injury to left forearm and left ribs. Exam Limited By: No Limitations General Appearance: Alert, WD/WN, No Apparent Distress Eye Exam: Bilateral Eye: EOMI, Normal Inspection, PERRL Ears: Normal External Exam, Normal Canal, Hearing Grossly Normal Ear Exam: Bilateral Ear: Auricle Normal, Canal Normal, Other (Left TM obstructed with cerumen, Right TM parially obstructed, no sign of drainage or infection. ) Nose: Normal Inspection, Normal Mucosa, No Blood Throat/Mouth: Normal Inspection, Normal Lips, Normal Oropharynx, Normal Voice, No Airway Compromise Head: Atraumatic, Normocephalic Neck: Normal Inspection, Supple, Non-Tender, Full Range of Motion. No: Lymphadenopathy (R), Lymphadenopathy (L) Respiratory/Chest: Rales, Prolonged Expiration, Other (Breath sounds decreased with rales to bialteral bases, pain with palpation to left anterior/lateral lower ribs. ). No: Wheezing, Stridor, Accessory Muscle Use, Retractions, Splinting Cardiovascular: Regular Rate, Rhythm, No Rub, Other (3+ pitting edema bilateral lower extremities from feet to knees. ) Peripheral Pulses: 1+: Dorsalis Pedis (L), Dorsalis Pedis (R), 2+: Brachial (R) , Radial (L) GI/Abdominal: Normal Bowel Sounds, Soft, Non-Tender, No Distention, No Mass Back Exam: Normal Inspection, Full Range of Motion, Other (Noted small bruise to right upper back 3cm in size). No: CVA Tenderness (R), CVA Tenderness (L), Paraspinal Tenderness, Vertebral Tenderness Extremities: Normal Range of Motion, Normal Capillary Refill, Pedal Edema, Leg Pain, Other (skin tear to left forearm, healed skin tears with small areas of ecchymosis to bilateral forearms. ROM intact, no signs of infection.). No: Joint Swelling Neurological: Alert, Oriented, CN II-XII Intact, Normal Cognition, No Motor/ Sensory Deficits Psychiatric: Normal Affect, Normal Mood Skin Exam: Warm, Ecchymosis, Other (skin tear as noted, small area of ecchymosis to right upper back, bilateral arms have small healing skin tears and areas of bruising. ) Lymphatic: No Adenopathy Course - Vital Signs Last Recorded V/S: Last Vital Signs Temp 36.4 C 10/15/17 12:20 Pulse 64 10/15/17 15:16 Resp 14 10/15/17 15:16 BP 117/59 L 10/15/17 15:16 Pulse Ox 95 10/15/17 15:16 - Orders/Labs/Meds Labs: Laboratory Tests 10/15/17 10/15/17 10/15/17 Range/Units 13:00 13:35 13:35 WBC 10.1 (4.5-11.0) K/uL RBC 3.91 L (4.30-5.90) M/uL Hgb 11.5 L (12.0-15.0) g/dL Hct 37.0 L (40.0-54.0) % MCV 95 (80-98) fL MCH 29 (27-31) pg MCHC 31 L (32-36) % Plt Count 287 (150-400) K/uL Neut % (Auto) 88 H (36-66) % Lymph % (Auto) 3 L (24-44) % [place] % (Auto) 8 H (2-6) % Eos % (Auto) 1 L (2-4) % Baso % (Auto) 0 (0-1) % Sodium 138 L (140-148) mmol/L Potassium 3.7 (3.6-5.2) mmol/L Chloride 102 (100-108) mmol/L Carbon Dioxide 29 (21-32) mmol/L Anion Gap 10.7 (5.0-14.0) mmol/L BUN 27 H (7-18) mg/dL Creatinine 0.9 (0.8-1.3) mg/dL Est Cr Clr Drug Dosing 70.92 mL/min Estimated GFR (MDRD) > 60 (>60) Glucose 180 H (74-106) mg/dL Calcium 8.1 L (8.5-10.1) mg/dL Magnesium 1.9 (1.8-2.4) mg/dL Total Bilirubin 0.3 (0.2-1.0) mg/dL AST 22 (15-37) U/L ALT 41 D (12-78) U/L Alkaline Phosphatase 116 (46-116) U/L NT-Pro-B Natriuret Pep 1166 H (5-450) pg/mL Total Protein 5.5 L (6.4-8.2) g/dL Albumin 2.0 L (3.4-5.0) g/dL Globulin 3.5 (2.3-3.5) g/dL Albumin/Globulin Ratio 0.6 L (1.2-2.2) Urine Color Yellow Urine Appearance Clear Urine pH 7.0 (4.5-8.0) Ur Specific Errol 1.005 L (1.008-1.030) Urine Protein Negative (NEGATIVE) mg/dL Urine Glucose (UA) Normal (NEGATIVE) mg/dL Urine Ketones Negative (NEGATIVE) mg/dL Urine Occult Blood Negative (NEGATIVE) Urine Nitrite Negative (NEGAITVE) Urine Bilirubin Negative (NEGATIVE) Urine Urobilinogen Normal (NORMAL) mg/dL Ur Leukocyte Esterase Negative (NEGATIVE) Urine RBC 0-5 (0-5) Urine WBC Not seen (0-5) Ur Epithelial Cells Not seen Amorphous Sediment Few Urine Bacteria Not seen Urine Mucus Not seen WBC 10.1, Hgb 11.5, K 3.7, creat 0.9, BUN 27, BNP 1166 Weakness, bilateral lower extremity edema, RLL small pleural effusion. Lab work reviewed with Dr. Russo, we will give patient bumex 2mg IV and discharge to home. Patient and his family in agreement with plan. Meds: Medications Discontinued Medications Generic Name Dose Route Start Last Admin Trade Name Stephanie PRN Reason Stop Dose Admin Bumetanide 2 mg 10/15/17 14:27 10/15/17 15:13 Bumex IVPUSH 10/15/17 14:28 2 mg ONETIME ONE Administration Sodium Chloride 1,000 mls @ 250 mls/hr 10/15/17 13:30 10/15/17 13:51 Normal Saline IV 250 mls/hr ASDIRECTED RACHAEL Administration - Radiology Interpretation Free Text/Narrative:: Chest x-ray reviewed, wet read. Small pleural effusion to RLL noted. Images reviewed with Dr. Hollingsworth and radiologist - no infiltrates noted, they agreed to small right pleural effusion, no new rib fractures. Departure - Departure Time of Disposition: 15:45 Disposition: Home, Self-Care 01 Condition: Fair Clinical Impression: Bilateral edema of lower extremity, Weakness generalized, History of lung cancer Instructions: Weakness, [id number], Edema, [id number] Referrals: PCP,None [Primary Care Provider] - Forms: ED Department Discharge Additional Instructions: You have been evaluated for weakness and bilateral lower leg edema. You have evidence of a small pleural effusion to your right lower lung per your chest x-ray. There are no signs of infection at this time. Your electrolytes are within normal as well as your kidney function. Make sure you are coughing and deep breathing to prevent development of pneumonia. It would be best for you to use an incentive spirometer every hour while awake and when you wake at night to help prevent pneumonia. You have been given a small amount of IV fluid and bumex 2mg IV in the emergency room today. It would be best for you to use a walker at home to help with mobility as well as reduce tripping hazards such as rugs. Move furniture in your home to make it easier to get around with use of a walker for your safety. Keep up with your regular diet and oral intake for strength. Take torsemide 10mg by mouth in stead of 5mg for the next 3 days. Continue your current medications as ordered per your primary provider. Follow up with your appointment as scheduled this coming Wednesday. Do not hesitate to return to the emergency room if you develop worsening symptoms, fever, chills, SOB, increased edema or any other concerns. - Assessment/Plan Assessment:: Bilateral edema of lower extremity, Weakness generalized, History of lung cancer Plan: Patient evaluated for weakness and bilateral lower leg edema. Evidence of a small pleural effusion to right lower lung per chest x-ray. There are no signs of infection at this time. Electrolytes are within normal as well as kidney function. Patient instructed to coughing and deep breathing to prevent development of pneumonia. Use an incentive spirometer every hour while awake and when waking at night to help prevent pneumonia. He was given a small amount of IV fluid and bumex 2mg IV in the emergency room today. It would be best for him to use a walker at home to help with mobility as well as reduce tripping hazards such as rugs. Patient and his family advised to Move furniture in their home to make it easier to get around with use of a walker for patient safety. Keep up with regular diet and oral intake for strength. Take torsemide 10mg by mouth in stead of 5mg for the next 3 days. Continue current medications as ordered per patient primary provider. Follow up with appointment as scheduled this coming Wednesday. Do not hesitate to return to the emergency room for development of worsening symptoms, fever, chills, SOB, increased edema or any other concerns.
--- NOTE | 2017-10-15 13:59 | CR ---
CHEST: 2 view CLINICAL HISTORY:Left rib pain, fall, SOB COMPARISON:11 January 2017 FINDINGS: Lungs are generally hyperaerated. There is a small to moderate right pleural effusion. The re is a minimal pleural fluid on the left. There is some old left rib deformities of the fifth throug h eighth ribs. Patient has a right jugular [id number] catheter There is a diffuse spondylosis. 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
[2017-10-15] MEDS ORDERED: Bumetanide 1 MG/4 ML MDV IVPUSH ONE (14:27)
[2017-10-15 15:16] VITALS: BP 117/59
== END 2017-10-15 16:12 | disposition home or self-care (01) ==
LOC: JP.ED 12:17
DX: S20.221A Contusion of right back wall of thorax, initial encounter (principal); R60.0 Localized edema; R53.1 Weakness; I48.91 Unspecified atrial fibrillation; Z87.891 Personal history of nicotine dependence; Z88.1 Allergy status to other antibiotic agents; Z79.899 Other long term (current) drug therapy; Z79.4 Long term (current) use of insulin; Z85.118 Personal history of other malignant neoplasm of bronchus and lung; W19.XXXA Unspecified fall, initial encounter
CPT/HCPCS: 36415; 71046; 80053; 81001; 83735; 83880; 85025; 96361; 96374; 99284; J7030; S0171